=== PATIENT | female | born 1985 | race African-American/Black ===

== ENCOUNTER 2017-08-09 22:10 | Observation (INO) ==
[2017-08-09] MEDS ORDERED: PANTOPRAZOLE 40 MG VIAL IV STA (22:53)
[2017-08-09] MEDS ORDERED: METOCLOPRAMIDE 10 MG/2 ML VIAL IV STA (22:53)
[2017-08-09] MEDS ORDERED: ONDANSETRON 4 MG/2 ML VIAL IV STA (22:53)
[2017-08-09] MEDS ORDERED: SODIUM CHLORIDE 0.9% 1,000 ML IV STA (22:53)
--- NOTE | 2017-08-09 22:59 | Emergency Department Note ---
Arrival - Arrival Chief Complaint: Nausea/Vomiting/Diarrhea ED Nursing Triage Note: Pt arrives via ems from home with complaints of abd pain for 2 weeks and nausea for 1 week. Pt states that she has nausea medication that is not working. Has a history of multiple abd surgeries and states that she has an appointment with her PCP doctor next week but that she is too nauseated to wait. No vomiting noted at time of triage. Moist mucus membranes noted. Skin turgor elastic. Mode of Arrival: Stretcher Limitations: No Limitations Source: Patient Time Seen by Provider: 08/09/17 22:53 - History of Present Illness HPI Narrative: This 32-year-old black female resents with 2 weeks of chronic abdominal pain nausea and vomiting. She states she vomited at least a half dozen times today. The patient states she has pancreatic carcinoma treated by surgery with partial pancreatectomy but no chemotherapy or radiation. She states she is followed for pancreatic CVA in [place] and has an appointment on 28 August for follow-up. In relation to her current symptoms she has midepigastric burning pain radiating to the back palm, heartburn, belching, and water brash. She was last seen here 5 days ago for similar symptoms. At that time she was treated for urinary tract infection and nausea. She denies any chills, fever, dysuria, urgency, or diarrhea currently. At this time she presents in no acute medical distress although complaining of need for pain medicine although she received 100 mcg of fentanyl in the last hour. Onset (ago): week(s) (Patient presents 2 weeks post onset of symptoms.) Date of Last Menstrual Period: Hyster Allergies/Adverse Reactions: Allergies Allergy/AdvReac Type Severity Reaction Status Date / Time diazepam [From Valium] AdvReac Hallucinati Verified 02/24/17 15:53 ng topiramate [From Topamax] AdvReac Difficulty Verified 02/24/17 15:53 Breathing tramadol AdvReac Nausea Verified 02/24/17 15:53 Home Medications: Home Medications Medication Instructions Recorded Confirmed Type Omeprazole [Prilosec] 40 mg PO BID 03/28/15 08/09/17 History ALPRAZolam [Xanax] 2 mg PO BID 03/03/16 08/09/17 History Zolpidem Tartrate [Ambien] 10 mg PO BEDTIME 09/16/16 08/09/17 History Promethazine Tab [Phenergan Tab] 25 - 50 mg PO TID PRN #40 tablet 01/29/1708/09 Rx Oxycodone HCl/Acetaminophen 1 each PO TID PRN 02/24/17 08/09/17 History [Oxycodone-Acetaminophen 10-325] Carisoprodol [Carisoprodol] 350 mg PO BID 04/15/17 08/09/17 History Metoprolol Tartrate [Metoprolol 50 mg PO BID 04/15/17 08/09/17 History Tartrate] Ondansetron [Ondansetron Odt] 8 mg PO Q8H 04/15/17 08/09/17 History Polyethylene Glycol Powder 17 gm PO DAILY #12 pack 04/15/17 08/09/17 Rx [Miralax] Promethazine Tab [Phenergan Tab] 50 mg PO Q6H PRN #40 tablet 08/04/17 08/09/17 Rx Sulfameth/Trimeth 400-80 Tab 1 tablet PO BID #14 tablet 08/04/17 08/09/17 Rx [Bactrim Tab] Review of System - Review of System 12 point system: reviewed and no additional remarkable complaints except as stated - Review of System Constitutional: Present: as per HPI Gastrointestinal: Present: as per HPI Medical,Surgical,& Family Hx - Medical History Cardio: History of: Cardiac Dysrhythmia, Hypertension, Cardiovascular Problems ( rapid heart rate) Psychological: History of: Anxiety Disorders Neurology: History of: Migraine Endocrine: History of: Diabetes Mellitus (NIDDM) (diet controlled dm) Respiratory: History of: Asthma Gastrointestinal: History of: GERD, GI Problems (pancreatic ca) Musculoskeletal: History of: Back/Neck Problems (neck problems) Hematology: History of: Anemia - Surgical History Abdominal Surgeries: Surgical HX of: Abdominal Surgery (Partial colectomy, questionable Whipple procedure), Appendectomy, Cholecystectomy, Splenectomy Reproductive Surgeries: Surgical HX of;: Hysterectomy - Family History Family History: Reports;: Family Cancer, Family Diabetes (AUNT), Family Heart Disease (FATHER), Family Hypertension (MOTHER AND FATHER) - Social History Smoking Status: Smoker, status unknown Frequency of Alcohol Use: None Type of Drug Use: None Exam Physical Examination: GENERAL: Obese black female who had to be awakened for examination in no acute distress. HEENT: Normocephalic. No trauma. Moist mucous membranes. EOMI. PERRLA. ENT NML NECK: Supple. No adenopathy. CARDIAC: Regular. No murmurs. Heart rate 97 CHEST: Clear to auscultation. No respiratory distress. O2 sat 90 per ABDOMEN: Soft. Tender right upper quadrant and mid epigastrium. Hypoactive bowel sounds. EXTREMITIES: No trauma. Normal ROM. No pedal edema. SKIN: No diaphoresis. No rash. NEURO: Alert. Neuro intact no focal deficits. Vital Signs: Vital Signs Temperature 98.6 F 08/09/17 22:10 Pulse Rate 102 H 08/10/17 01:47 Respiratory Rate 18 08/10/17 01:47 Blood Pressure 104/55 08/10/17 01:08 O2 Sat by Pulse Oximetry 97 08/10/17 01:47 Course - Reevaluation(s) Reevaluation #1: Discussed with patient the soft evidence of possible small bowel obstruction and bump in lactic acid that she would need overnight observation and enemas - Consultations Consultation #1: Discussed with hospitalist service who will admit for further evaluation treatment. Results - Labs CBC & BMP: 08/09/17 23:04 08/09/17 23:04 Labs: I have reviewed the lab and noted the mildly depressed hematocrit bump in lactic acid but otherwise grossly normal laboratory including lipase. - Diagnostic Findings Procedure: CT Abdomen and Pelvis: image reviewed by me, report reviewed by me ( Severe fecal stasis, possible early small bowel obstruction and gastroparesis noted possibility of mesenteric adenitis was noted) Disposition Clinical Impression: Severe fecal stasis, Chronic abdominal pain, Possible early small bowel obstruc , Possible mesenteric adenitis Case discussed with: patient Disposition: Still a Patient Condition: Guarded Time of Disposition: 01:57
[2017-08-09] MEDS ORDERED: PANTOPRAZOLE 40 MG VIAL IV ONE (23:13)
[2017-08-09] MEDS ORDERED: METOCLOPRAMIDE 10 MG/2 ML VIAL ONE (23:14)
[2017-08-09] MEDS ORDERED: ONDANSETRON 4 MG/2 ML VIAL ONE (23:14)
[2017-08-09 23:16] LABS: Basophils % 0.4 % (0.0-0.8); Eosinophils # 0.4 10*3/uL (0.0-0.87); Eosinophils % 4.4 % (0.00-10.9); Hemoglobin 11.4 GM/DL (12.0-16.0); Immature Granulocytes % 0.1 %; Immature Granulocytes Absolute 0.01 #; Lymphocytes # 4.9 10*3/uL (1.4-4.0); Lymphocytes % 58.3 % (21.3-54.2); Mean Corpuscular HGB Conc 33.5 GM/DL (32-36); Mean Corpuscular Hemoglobin 31 PG (27-34); Mean Corpuscular Volume 92.4 FL (87-102); Mean Platelet Volume 10.3 FL (9.6-12.0); Monocytes # 0.7 10*3/uL (0.11-0.8); Monocytes % 7.7 % (1.7-12.7); Neutrophils # 2.5 10*3/uL (1.4-7.4); Neutrophils % 29.1 % (38.7-73.9); Platelet Count 261 T/CUMM (130-400); Red Blood Count 3.68 MC/CUMM (3.8-5.5); Red Cell Distribution Width 15.6 % (9.3-17.3); White Blood Count 8.5 T/CUMM (4-12)
[2017-08-09] MEDS ORDERED: HYDROmorphone 2 MG/1 ML VIAL IV STA (23:22)
[2017-08-09] MEDS ORDERED: HYDROmorphone 2 MG/1 ML VIAL ONE (23:26)
[2017-08-09 23:42] LABS: Lactic Acid 2.1 MMOL/L (0.4-2.0)
[2017-08-09 23:44] LABS: Alanine Aminotransferase 33 U/L (13-56); Albumin 3.5 G/DL (3.4-5.0); Alkaline Phosphatase 87 U/L (45-117); Amylase 78 U/L (25-115); Aspartate Amino Transferase 24 U/L (0-37); Bilirubin,Total < 0.39 MG/DL (0.2-1.0); Blood Urea Nitrogen 17 MG/DL (7-18); Calcium 8.9 MG/DL (8.5-10.1); Glucose 142 MG/DL (74-106); Osmolality,Calculated 284.3 MOS/KG (273-304); Potassium 4.3 MMOL/L (3.5-5.1); Sodium 141 MMOL/L (136-145); Total Protein 7.2 G/DL (6.4-8.3); Troponin I Only < 0.015 NG/ML (0.00-0.045)
[2017-08-10] MEDS ORDERED: NALOXONE 0.4 MG/ML VIAL ONE (00:25)
[2017-08-10 00:32] LABS: Anisocytosis 1+; Eosinophils 4 % (0-10); Lymphocytes 68 % (20-55); Platelet Estimate Normal; Segmented Neutrophils 24 % (50-85); Total Cells Counted 100
[2017-08-10] MEDS ORDERED: NALOXONE 0.4 MG/ML VIAL IV STA (00:39)
[2017-08-10 01:52] LABS: Apearance,Urine CLEAR (Clear); Bilirubin,Urine Negative (Negative); Blood, Urine Negative (Negative); Glucose,Urine (UA) Negative (Negative); Hyaline Casts,Urine 19 /LPF (0-3); Ketones,Urine Negative (Negative); Mucus,Urine Occasional /LPF (Occasional); Nitrite,Urine Negative (Negative); Protein,Urine Negative; RBC,Urine 1 /HPF (0-4); Squamous Epithelial Cell,Urine Occasional /HPF (0-10); Urine Color Amber (Yellow); Urine Specific Gravity 1.031 (1.001-1.035); Urine Urobilinogen < 2.0 EU/DL (0.2-1.0); WBC,Urine 7 /HPF (0-6)
[2017-08-10] MEDS ORDERED: ONDANSETRON 4 MG/2 ML VIAL IV PRN (02:13)
--- NOTE | 2017-08-10 02:28 | Hospitalist History & Physical ---
Assessment and Plan (1) Chronic abdominal pain Status: Acute Current Visit: No (2) Constipation Status: Acute Current Visit: No (3) History of pancreatic cancer Status: Acute Current Visit: No (4) Lower extremity edema Status: Acute Current Visit: No (5) UTI (urinary tract infection) Status: Acute Current Visit: No (6) UTI (urinary tract infection) Status: Acute Current Visit: No (7) Vomiting Status: Acute Assessment and plan: Our plan for this patient will be admitting her to our service. Will need to follow-up on the final read of the CT scan. Will put on a clear liquid diet and repeat a KUB in the morning. Provide gentle hydration and recheck a lactate level. Consult GI for the possible gastric outlet obstruction. We will continue home meds as appropriate. For her constipation I want to give her a dose of Relistor. The patient appears to have a small bowel obstruction on the KUB would recommend keeping her n.p.o. Patient was complaining about a lot of pain but I had to wake her up from a deep sleep. Current Visit: No History of Present Illness Chief complaint: Hurting all over and abdominal pain History of present illness: Ms. Coley is a 32 year old female with past medical history significant for chronic abdominal pain, chronic narcotic use, pancreatic cancer treated surgically, and morbid obesity comes into our ER tonight. Patient reports that she has vomited half a dozen times. She related this to the ER physician. She received pain medicine and significantly sedated when I examined her. She has midepigastric burning pain radiating to her back. She is being treated for urinary tract infection. She returned back to night. She had a CT scan of her abdomen that per preliminary read showed a unusual amount of stool in the colon. The CT scan also showed a short loop of small bowel in the left lateral abdomen dilated up to 5.5 cm suggesting post operative morphological alteration or small bowel obstruction. She also had a possibility of gastric obstruction versus gastroparesis. She also was noted as having multiple nonspecific lymph nodes in the mesenteric fat. I was consulted to admit her Home Medications Medication Instructions Recorded Confirmed Type Omeprazole [Prilosec] 40 mg PO BID 03/28/15 08/09/17 History ALPRAZolam [Xanax] 2 mg PO BID 03/03/16 08/09/17 History Zolpidem Tartrate [Ambien] 10 mg PO BEDTIME 09/16/16 08/09/17 History Promethazine Tab [Phenergan Tab] 25 - 50 mg PO TID PRN #40 tablet 01/29/1708/09 Rx Oxycodone HCl/Acetaminophen 1 each PO TID PRN 02/24/17 08/09/17 History [Oxycodone-Acetaminophen 10-325] Carisoprodol [Carisoprodol] 350 mg PO BID 04/15/17 08/09/17 History Metoprolol Tartrate [Metoprolol 50 mg PO BID 04/15/17 08/09/17 History Tartrate] Ondansetron [Ondansetron Odt] 8 mg PO Q8H 04/15/17 08/09/17 History Polyethylene Glycol Powder 17 gm PO DAILY #12 pack 04/15/17 08/09/17 Rx [Miralax] Promethazine Tab [Phenergan Tab] 50 mg PO Q6H PRN #40 tablet 08/04/17 08/09/17 Rx Sulfameth/Trimeth 400-80 Tab 1 tablet PO BID #14 tablet 08/04/17 08/09/17 Rx [Bactrim Tab] Allergies Allergy/AdvReac Type Severity Reaction Status Date / Time diazepam [From Valium] AdvReac Hallucinati Verified 02/24/17 15:53 ng topiramate [From Topamax] AdvReac Difficulty Verified 02/24/17 15:53 Breathing tramadol AdvReac Nausea Verified 02/24/17 15:53 Medical,Surgical,& Family Hx - Medical History Cardio: History of: Cardiac Dysrhythmia, Hypertension, Cardiovascular Problems ( rapid heart rate) Psychological: History of: Anxiety Disorders Neurology: History of: Migraine Endocrine: History of: Diabetes Mellitus (NIDDM) (diet controlled dm) Respiratory: History of: Asthma Gastrointestinal: History of: GERD, GI Problems (pancreatic ca) Musculoskeletal: History of: Back/Neck Problems (neck problems) Hematology: History of: Anemia - Surgical History Abdominal Surgeries: Surgical HX of: Abdominal Surgery (Partial colectomy, questionable Whipple procedure), Appendectomy, Cholecystectomy, Splenectomy Reproductive Surgeries: Surgical HX of;: Hysterectomy - Family History Family History: Reports;: Family Cancer, Family Diabetes (AUNT), Family Heart Disease (FATHER), Family Hypertension (MOTHER AND FATHER) - Social History Smoking Status: Smoker, status unknown Frequency of Alcohol Use: None Type of Drug Use: None ROS unobtainable: due to mental status Exam - Constitutional Vitals: Period Temp Pulse Resp BP Sys/[place] Pulse Ox Last 24 Hr 98.6 F-98.6 F 87-109 16-18 104-120/55-87 96-100 General appearance: morbidly obese - Head Head exam: Present: normal inspection - Eye Eye exam: Present: EOMI Pupils: Present: KAYLIN - ENT ENT exam: Present: normal exam - Neck Neck exam: Present: normal inspection - Respiratory Respiratory exam: Present: clear to auscultation bilaterally - Cardiovascular Cardiovascular exam: Present: regular rate and rhythm - GI/Abdominal GI/Abdominal exam: Present: hypoactive bowel sounds, tenderness. Absent: rebound - Extremities Exam Extremities exam: Present: normal inspection - Back Exam Back exam: Present: normal inspection - Neurological Exam Neurological exam: Present: other (Patient is receiving pain medications) - Psychiatric Psychiatric exam: Present: normal affect - Skin Skin exam: Present: normal color Results - Labs CBC & BMP: 08/09/17 23:04 08/09/17 23:04
[2017-08-10] MEDS ORDERED: METHYLNALTREXONE 12 MG/0.6 ML VIAL SUBCUT ONE (04:00)
[2017-08-10] MEDS: SODIUM CHLORIDE 0.9% 1,000 ML IV SCH ×3 (04:22→17:15)
[2017-08-10 06:18] LABS: Basophils % 0.2 % (0.0-0.8); Eosinophils # 0.4 10*3/uL (0.0-0.87); Hematocrit 32.6 VOL% (35.7-47.0); Hemoglobin 10.6 GM/DL (12.0-16.0); Immature Granulocytes % 0.1 %; Immature Granulocytes Absolute 0.01 #; Lymphocytes # 4.6 10*3/uL (1.4-4.0); Lymphocytes % 57.1 % (21.3-54.2); Mean Corpuscular HGB Conc 32.5 GM/DL (32-36); Mean Corpuscular Hemoglobin 30 PG (27-34); Mean Corpuscular Volume 92.4 FL (87-102); Mean Platelet Volume 10.4 FL (9.6-12.0); Monocytes # 0.7 10*3/uL (0.11-0.8); Monocytes % 8.9 % (1.7-12.7); Neutrophils # 2.3 10*3/uL (1.4-7.4); Neutrophils % 28.7 % (38.7-73.9); Platelet Count 250 T/CUMM (130-400); Red Blood Count 3.53 MC/CUMM (3.8-5.5); Red Cell Distribution Width 15.9 % (9.3-17.3); White Blood Count 8.1 T/CUMM (4-12)
[2017-08-10 06:45] LABS: Eosinophils 5 % (0-10); Hypochromasia 1+; Lymphocytes 59 % (20-55); Segmented Neutrophils 25 % (50-85); Total Cells Counted 100
[2017-08-10 06:46] LABS: Microcytosis Slight; Platelet Estimate Adequate
--- NOTE | 2017-08-10 06:50 | XRay Report ---
XR chest 1V portable Indication: Abdominal pain Comparison: 15 November 2016 Findings: The heart and mediastinum are normal in size and configuration. The pulmonary vascularity is normal in caliber. No lung infiltrates, effusions, pneumothorax or other abnormality is demonstrated. Impression: No acute cardiopulmonary findings. PROCEDURE INTERPRETED AT [facility] DEPARTMENT OF RADIOLOGY Final Report Signed by: Dr. Damián Barney
[2017-08-10 06:52] LABS: Alanine Aminotransferase 29 U/L (13-56); Albumin 3.2 G/DL (3.4-5.0); Alkaline Phosphatase 83 U/L (45-117); Aspartate Amino Transferase 20 U/L (0-37); Bilirubin,Total < 0.39 MG/DL (0.2-1.0); Blood Urea Nitrogen 14 MG/DL (7-18); Calcium 8.6 MG/DL (8.5-10.1); Glucose 103 MG/DL (74-106); Osmolality,Calculated 283.1 MOS/KG (273-304); Potassium 5.1 MMOL/L (3.5-5.1); Sodium 142 MMOL/L (136-145); Total Protein 6.2 G/DL (6.4-8.3)
[2017-08-10] MEDS: oxyCODONE/ACETAMINOPHEN 5-325 MG TABLET PO PRN ×2 (08:01→22:25)
--- NOTE | 2017-08-10 08:05 | CT Report ---
CT abdomen pelvis Indication: Nausea vomiting Comparison: 15 November 2016 Technique: Axial CT imaging of the abdomen and pelvis is performed with intravenous and oral contrast. Contrast dose is 100 cc of Omnipaque 350. Findings: Cardiac and lung bases are within normal limits CT abdomen: The liver spleen and adrenal glands are normal in size and enhancement. No evidence of focal lesion is demonstrated in these solid organs. Gallbladder is been removed. Kidneys are normal in size and enhancement. No evidence of hydronephrosis or nephrolithiasis is seen. There is increased stool volume in the colon. Prominent loop of small bowel is present in the left mid abdomen, surgery is been performed at this level previously and was slightly dilated on previous exam. Stomach is moderately distended. Otherwise the bowel caliber is normal and no wall thickening or adjacent inflammatory change is seen. No evidence of free fluid or free air is present. Few 1.5 cm or less lymph nodes are present in the central mesentery. CT pelvis: The pelvic bowel appears within normal limits. Bladder shows no evidence of abnormality. The uterus and ovaries are not present. Impression: Gastric distention could indicate gastroparesis. Few prominent lymph nodes in the central mesentery could indicate mesenteric adenitis. Prominent small bowel in the left mid abdomen at the site of previous surgery. Increased stool volume. No other evidence of abnormality demonstrated This CT exam was performed using one or more the following dose reduction techniques: Automated exposure control, adjustment of the MA and/or KV according to patient size, or use of iterative reconstruction technique. PROCEDURE INTERPRETED AT [facility] DEPARTMENT OF RADIOLOGY Final Report Signed by: Dr. Damián Barney
[2017-08-10] MEDS ORDERED: PANTOPRAZOLE 40 MG TABLET PO SCH (09:00)
[2017-08-10] MEDS ORDERED: ENOXAPARIN 40 MG/0.4 ML SYRINGE SUBCUT SCH (09:00)
[2017-08-10] MEDS ORDERED: POLYETHYLENE GLYCOL POWDER 17 GM PACK PO SCH (09:00)
[2017-08-10] MEDS: CARISOPRODOL 350 MG TABLET PO SCH ×2 (09:22→21:50)
[2017-08-10] MEDS: METOPROLOL TARTRATE 50 MG TABLET PO SCH ×2 (09:22→21:50)
[2017-08-10] MEDS: PANTOPRAZOLE 40 MG TABLET PO SCH ×2 (09:22→21:51)
[2017-08-10] MEDS: ALPRAZolam 0.5 MG TABLET PO SCH ×2 (09:22→21:50)
[2017-08-10] MEDS: SULFAMETHOX/TRIMETHOPRIM 400-80 MG TABLET PO SCH ×2 (09:23→21:50)
--- NOTE | 2017-08-10 09:29 | XRay Report ---
XR KUB Indication: Abdominal pain Comparison: and July 2017 Findings: No free fluid or free air seen. Multiple clips are present from previous surgeries. There are some retained contrast within the colon and bladder from recent CT procedure. Otherwise the bowel gas pattern appears within normal limits. No abnormal calcifications are present. No other abnormality is identified. Impression: No evidence of acute process demonstrated. PROCEDURE INTERPRETED AT [facility] DEPARTMENT OF RADIOLOGY Final Report Signed by: Dr. Damián Barney
[2017-08-10] MEDS ORDERED: MORPHINE 2 MG/1 ML SYRINGE ONE (11:38)
[2017-08-10] MEDS ORDERED: MORPHINE 2 MG/1 ML SYRINGE IV PRN (11:39)
--- NOTE | 2017-08-10 14:56 | Gastrointestinal Consult Note ---
Assessment and Plan (1) Abdominal pain Status: Acute Assessment and plan: 08/10-history of chronic abdominal pain with multiple abdominal surgeries with history of pancreatic cancer in the past. Reported epigastric pain/burning sensation 2 weeks with nausea and vomiting which is increased in frequency. Report of possible hematemesis. Prior endoscopy at [facility] noted. Will attempt to obtain records. Consider possible EGD to further evaluate source of pain. Plan an addendum to followed by Dr. Jones. Current Visit: Yes History of Present Illness Chief complaint: Abdominal pain, nausea vomiting History of present illness: Ms. Coley is a 32 year old female who was admitted to the hospital morning with a 2 week history of abdominal pain with nausea vomiting. Patient states that she has a long-term history of chronic abdominal pain that began several years ago with a history of pancreatic cancer. She has had multiple abdominal surgeries which were performed by Dr. Harvey which included cholecystectomy, appendectomy and a Whipple. She had no adjuvant therapy following her surgery. Patient states that a couple weeks ago the nature of her pain began to change and become more severe. She states the pain is in her upper epigastric region and is a burning sensation. The pain radiates into her back as well. She has a history of random episodes of nausea vomiting but states over the last several days she has had an increased amount of this. She reports that she has had a couple of episodes of what appeared to look like blood in her emesis as well which she described as "dark red chunks". She states that she does have reflux and dyspepsia symptoms but denies any dysphagia. She denies any recent weight loss other than 14 pounds over the last several years. She states that this episode of nausea vomiting was different in that it was more frequent and severe. Patient also states the pain medication is not holding her abdominal pain at this time. She is noted to be on Percocet and Soma as well as Xanax at home. She takes Prilosec twice a day. Patient states she has not had a bowel movement in 3-4 days. She denies any associated fever or chills. KUB shows no acute processes however noted retained contrast in the colon. CT of the abdomen with oral and IV contrast shows gastric distention, few prominent central mesenteric lymph nodes, prominent small bowel in left mid abdomen at site of prior surgery with increased stool volume and no other acute findings. Urine C&S is pending at this time. Patient states her last endoscopy was done at [facility] in the past year to by Dr. Mccauley. She vaguely recalls a questionable history of peptic ulcer disease in the past. She denies a history of taking any NSAIDs or anticoagulants. Home Medications Medication Instructions Recorded Confirmed Type Omeprazole [Prilosec] 40 mg PO BID 03/28/15 08/09/17 History ALPRAZolam [Xanax] 2 mg PO BID 03/03/16 08/09/17 History Zolpidem Tartrate [Ambien] 10 mg PO BEDTIME 09/16/16 08/09/17 History Promethazine Tab [Phenergan Tab] 25 - 50 mg PO TID PRN #40 tablet 01/29/1708/09 Rx Oxycodone HCl/Acetaminophen 1 each PO TID PRN 02/24/17 08/09/17 History [Oxycodone-Acetaminophen 10-325] Carisoprodol [Carisoprodol] 350 mg PO BID 04/15/17 08/09/17 History Metoprolol Tartrate [Metoprolol 50 mg PO BID 04/15/17 08/09/17 History Tartrate] Ondansetron [Ondansetron Odt] 8 mg PO Q8H 04/15/17 08/09/17 History Polyethylene Glycol Powder 17 gm PO DAILY #12 pack 04/15/17 08/09/17 Rx [Miralax] Promethazine Tab [Phenergan Tab] 50 mg PO Q6H PRN #40 tablet 08/04/17 08/09/17 Rx Sulfameth/Trimeth 400-80 Tab 1 tablet PO BID #14 tablet 08/04/17 08/09/17 Rx [Bactrim Tab] Allergies Allergy/AdvReac Type Severity Reaction Status Date / Time diazepam [From Valium] AdvReac Hallucinati Verified 02/24/17 15:53 ng topiramate [From Topamax] AdvReac Difficulty Verified 02/24/17 15:53 Breathing tramadol AdvReac Nausea Verified 02/24/17 15:53 Medical,Surgical,& Family Hx - Medical History Cardio: History of: Cardiac Dysrhythmia, Hypertension, Cardiovascular Problems ( rapid heart rate) Psychological: History of: Anxiety Disorders Neurology: History of: Migraine Endocrine: No history of: Diabetes Mellitus (NIDDM) (Stated she was not diabetic) Respiratory: History of: Asthma, Bronchitis, COPD Gastrointestinal: History of: Bowel Obstruction, GERD, GI Problems (pancreatic ca) Musculoskeletal: History of: Back/Neck Problems (neck problems) Hematology: History of: Anemia - Surgical History Thoracic Surgeries: Patient denies;: Organ Transplant, Lobectomy Neurologic Surgeries: Patient denies: Neurologic Surgery Abdominal Surgeries: Surgical HX of: Abdominal Surgery (Partial colectomy, questionable Whipple procedure), Appendectomy, Cholecystectomy, Splenectomy Reproductive Surgeries: Surgical HX of;: Hysterectomy - Family History Family History: Reports;: Family Cancer, Family Diabetes (AUNT), Family Heart Disease (FATHER), Family Hypertension (MOTHER AND FATHER) - Social History Smoking Status: Current every day smoker Frequency of Alcohol Use: None Type of Drug Use: None 12 point system: reviewed and no additional remarkable complaints except as stated - Constitutional Constitutional: Present: as per HPI - EENT Eyes: Present: as per HPI Ears: Present: as per HPI Nose, mouth and throat: Present: as per HPI - Cardiovascular Cardiovascular: Present: as per HPI - Respiratory Respiratory: Present: as per HPI - Gastrointestinal Gastrointestinal: Present: as per HPI, abdominal pain, change in bowel habits, constipation, nausea, vomiting - Genitourinary Genitourinary: Present: as per HPI - Musculoskeletal Musculoskeletal: Present: as per HPI - Neurological Neurological: Present: as per HPI - Psychiatric Psychiatric: Present: as per HPI - Endocrine Endocrine: Present: as per HPI - Hematologic/Lymphatic Hematologic/Lymphatic: Present: as per HPI Exam - Constitutional Vitals: Period Temp Pulse Resp BP Sys/[place] Pulse Ox Last 24 Hr 97.1 F-98.6 F 87-109 16-20 102-124/55-87 95-100 General appearance: no acute distress, over weight - Head Head exam: Present: normal inspection, normocephalic - Eye Eye exam: Present: other (Lids and conjunctive are unremarkable). Absent: scleral icterus - ENT ENT exam: Present: normal exam, normal oropharynx - Neck Neck exam: Present: normal inspection - Respiratory Respiratory exam: Present: clear to auscultation bilaterally. Absent: rales, rhonchi, wheezes - Cardiovascular Cardiovascular exam: Present: regular rate and rhythm. Absent: diastolic murmur , JVD, systolic murmur - GI/Abdominal GI/Abdominal exam: Present: normal bowel sounds, soft. Absent: ascites, distended, mass, organomegaly, tenderness - Extremities Exam Extremities exam: Present: normal inspection, full ROM - Back Exam Back exam: Present: normal inspection - Neurological Exam Neurological exam: Present: alert, oriented X3 - Psychiatric Psychiatric exam: Present: normal affect, normal mood - Skin Skin exam: Present: normal color, warm, dry Results - Labs CBC & BMP: 08/10/17 06:07 08/10/17 06:07 Lab Results: I have reviewed the past 24 hour labs - Diagnostic Findings Procedure: CT Abdomen and Pelvis: report reviewed by me, X-ray: report reviewed by me Quality Measures - Stroke Symptom Onset Unknown: No
[2017-08-10] MEDS: HYDROmorphone 2 MG/1 ML VIAL IV PRN (18:55)
[2017-08-11] MEDS: HYDROmorphone 2 MG/1 ML VIAL IV PRN ×2 (02:17→08:50)
[2017-08-11 03:32] LABS: Basophils % 0.3 % (0.0-0.8); Eosinophils # 0.4 10*3/uL (0.0-0.87); Eosinophils % 5.3 % (0.00-10.9); Hematocrit 32.2 VOL% (35.7-47.0); Hemoglobin 10.4 GM/DL (12.0-16.0); Immature Granulocytes % 0.1 %; Immature Granulocytes Absolute 0.01 #; Lymphocytes # 4.5 10*3/uL (1.4-4.0); Lymphocytes % 57.5 % (21.3-54.2); Mean Corpuscular HGB Conc 32.3 GM/DL (32-36); Mean Corpuscular Hemoglobin 30 PG (27-34); Mean Corpuscular Volume 93.6 FL (87-102); Mean Platelet Volume 11.3 FL (9.6-12.0); Monocytes # 0.8 10*3/uL (0.11-0.8); Monocytes % 9.8 % (1.7-12.7); Neutrophils # 2.1 10*3/uL (1.4-7.4); Platelet Count 252 T/CUMM (130-400); Red Blood Count 3.44 MC/CUMM (3.8-5.5); Red Cell Distribution Width 15.9 % (9.3-17.3); White Blood Count 7.8 T/CUMM (4-12)
[2017-08-11 04:09] LABS: Magnesium 1.7 MG/DL (1.8-2.4); Osmolality,Calculated 284.8 MOS/KG (273-304)
[2017-08-11 05:15] LABS: Eosinophils 5 % (0-10); Giant Platelets Few; Hypochromasia 1+; Lymphocytes 49 % (20-55); Microcytosis Slight; Ovalocytes Slight; Platelet Estimate Adequate; Segmented Neutrophils 35 % (50-85); Total Cells Counted 100
[2017-08-11] MEDS: SODIUM CHLORIDE 0.9% 1,000 ML IV SCH (06:19)
--- NOTE | 2017-08-11 11:07 | Discharge Summary ---
Hospital Course - Hospital Course Hospital Course: Ms. Coley is a 32 year old female with past medical history significant for chronic abdominal pain, chronic narcotic use, pancreatic cancer treated surgically, and morbid obesity presents to the ER and reports that she has vomited half a dozen times and complains of abdominal pain. KUB concerning for small bowel obstruction. CT A/P with gastric distention. Gastroenterology was consulted. The plan was for EGD today. During admission patient has not followed our clear liquid diet instructions and has continuously walked downstairs despite being asked not to due to being on IV pain medications. There is very high concern that patient has been eating this morning, despite being NPO. So the EGD will not be performed. Patient is tolerating the diet of her choice and ambulating. She has reached maximal benefit of inpatient stay and will be discharged to home. - Time spent with patient Time with patient DS: Less than 30 minutes Diagnosis - Discharge Diagnosis (1) Chronic abdominal pain Status: Resolved (2) Vomiting Status: Resolved (3) Abdominal pain Status: Resolved Discharge Plan - Discharge Data Disposition: Disch To Home/Self Care Condition at Discharge: Stable Activity: increase activity as tolerated Hygiene: no restrictions Weight Bearing at Discharge: weight bear as tolerated Driving: no restrictions - Discharge Medications Continue Omeprazole [Prilosec] 40 mg PO BID ALPRAZolam [Xanax] 2 mg PO BID Zolpidem Tartrate [Ambien] 10 mg PO BEDTIME Oxycodone HCl/Acetaminophen [Oxycodone-Acetaminophen 10-325] 1 each PO TID PRN PRN Reason: Pain Ondansetron [Ondansetron Odt] 8 mg PO Q8H Carisoprodol 350 mg PO BID Sulfameth/Trimeth 400-80 Tab [Bactrim Tab] 1 tablet PO BID #14 tablet Promethazine Tab [Phenergan Tab] 25 - 50 mg PO TID PRN #40 tablet PRN Reason: Nausea/Vomiting Metoprolol Tartrate 50 mg PO BID Polyethylene Glycol Powder [Miralax] 17 gm PO DAILY #12 pack Promethazine Tab [Phenergan Tab] 50 mg PO Q6H PRN #40 tablet PRN Reason: Nausea, vomiting or headache - Follow Up or Referral - Forms/Instructions Exam - Constitutional Vitals: Period Temp Pulse Resp BP Sys/[place] Pulse Ox Last 24 Hr 96.6 F-97.9 F 85-103 18-22 110-124/68-83 95-96 General appearance: normal weight - Head Head exam: Present: normocephalic, atraumatic - Eye Eye exam: Present: EOMI Pupils: Present: KAYLIN - ENT ENT exam: Present: normal exam - Neck Neck exam: Present: normal inspection - Respiratory Respiratory exam: Present: clear to auscultation bilaterally - Cardiovascular Cardiovascular exam: Present: regular rate and rhythm - GI/Abdominal GI/Abdominal exam: Present: normal bowel sounds, soft. Absent: tenderness, rebound - Extremities Exam Extremities exam: Present: normal inspection - Back Exam Back exam: Present: normal inspection - Neurological Exam Neurological exam: Present: alert, oriented X3 - Psychiatric Psychiatric exam: Present: normal affect, normal mood - Skin Skin exam: Present: warm, intact Discharge Results Procedures and tests throughout hospitalization: Pending Orders 08/10/17 Urine Culture Routine Labs on day of discharge: Labs from last 24 hours 08/11/17 08/11/17 08/11/17 07:22 02:16 02:16 WBC 7.8 RBC 3.44 L Hgb 10.4 L Hct 32.2 L MCV 93.6 MCH 30 MCHC 32.3 RDW 15.9 Plt Count 252 MPV 11.3 Neut % (Auto) 27.0 L Lymph % (Auto) 57.5 H [place] % (Auto) 9.8 Eos % (Auto) 5.3 Baso % (Auto) 0.3 Neut # (Auto) 2.1 Lymph # (Auto) 4.5 H [place] # (Auto) 0.8 Eos # (Auto) 0.4 Baso # (Auto) 0.0 Total Counted 100 Immature Gran % 0.1 Nucleated RBC % 0.0 Immature Gran # 0.01 Segmented Neutrophils 35 L Lymphocytes 49 Monocytes 11 Eosinophils 5 Nucleated RBCs # 0.00 Platelet Estimate Adequate Giant Platelets Few Immature Plt Fraction 0.0 Hypochromasia 1+ Microcytosis Slight Ovalocytes Slight Sodium 144 Potassium 5.0 Chloride 111 H Carbon Dioxide 28 Anion Gap 10.0 BUN 11 Creatinine 0.80 GFR Calculation 120 BUN/Creatinine Ratio 13.00 Glucose 102 POC Glucose 128 H Calculated Osmolality 284.8 Calcium 9.0 Magnesium 1.7 L 08/10/17 08/10/17 20:17 11:02 WBC RBC Hgb Hct MCV MCH MCHC RDW Plt Count MPV Neut % (Auto) Lymph % (Auto) [place] % (Auto) Eos % (Auto) Baso % (Auto) Neut # (Auto) Lymph # (Auto) F[place] # (Auto) Eos # (Auto) Baso # (Auto) Total Counted Immature Gran % Nucleated RBC % Immature Gran # Segmented Neutrophils Lymphocytes Monocytes Eosinophils Nucleated RBCs # Platelet Estimate Giant Platelets Immature Plt Fraction Hypochromasia Microcytosis Ovalocytes Sodium Potassium Chloride Carbon Dioxide Anion Gap BUN Creatinine GFR Calculation BUN/Creatinine Ratio Glucose POC Glucose 88 120 H Calculated Osmolality Calcium Magnesium DS: Provider Date of admission: 08/10/17 02:13 Primary care physician: Geneva Quintanilla Attending physician on admission: Yaya Anglin MD Consults: 08/10/17 02:22 Consult to Physician [CONS] Routine Comment: Consulting Provider: Akil Jones Consult to Specialist Group: Gastroenterology When should Consulting Provider be notified: In am Person Notified: LEXUS Bell Date Notified: 08/10/17 Time Notified: 14:37 Discharging clinician: Rashad Barreto MD
[2017-08-11 11:41] VITALS: BP 121/74
== END 2017-08-11 11:48 | disposition home or self-care (01) ==
LOC: EDBD → EDUNIT# → N.ED 22:10 → N.EDINP 22:10 → SUATTDRO 08-10 02:13 → N.EDINP 08-10 03:01 → N.5E 08-10 04:00
PROVIDERS: ADMIT Internal Medicine; ATTEND Internal Medicine